=== PATIENT | female | born 1990 | race Hispanic/Latino ===

== ENCOUNTER 2024-03-25 16:39 | Emergency (ER) | payer BC, OTHER ==
[2024-03-25] MEDS ORDERED: Morphine 4 MG/ML VIAL ONE (17:15)
== END 2024-03-25 18:23 | disposition home or self-care (01) ==
LOC: ERS 16:39
DX: M54.6 Pain in thoracic spine (principal); R07.81 Pleurodynia; F17.210 Nicotine dependence, cigarettes, uncomplicated; V89.2XXA Person injured in unspecified motor-vehicle accident, traffic, initial encounter
CPT/HCPCS: 70450; 71046; 72070; 72125; 96372; J2272